=== PATIENT | male | born 1985 | race Two or more races ===

== ENCOUNTER 2020-03-09 17:21 | Outpatient (REF) | payer BC, SELFPAY | END 2020-03-09 17:22 | disposition home or self-care (01) | LOC: HO.LAB 17:21 | PROVIDERS: Visit Provider Internal Medicine | DX: Z20.822 Contact with and (suspected) exposure to COVID-19 (principal) | CPT/HCPCS: 36415; C9803; U0003 ==

== ENCOUNTER 2020-07-02 09:24 | Outpatient (REF) | payer BC, SELFPAY ==
[2020-07-02 09:44] LABS: COVID-19 Test Positive (Negative)
== END 2020-07-02 09:25 | disposition home or self-care (01) ==
LOC: HO.LAB 09:24
PROVIDERS: Visit Provider Internal Medicine
DX: Z20.822 Contact with and (suspected) exposure to COVID-19 (principal)
CPT/HCPCS: 36415; 87635; C9803

== ENCOUNTER 2020-07-13 15:15 | Outpatient (REF) | payer BC, SELFPAY ==
[2020-07-13 15:38] LABS: COVID-19 Test Negative (Negative)
== END 2020-07-13 15:16 | disposition home or self-care (01) ==
LOC: HO.LAB 15:15
PROVIDERS: Visit Provider Internal Medicine
DX: Z20.822 Contact with and (suspected) exposure to COVID-19 (principal)
CPT/HCPCS: 36415; 87635; C9803

== ENCOUNTER → 2022-09-13 14:04 | Outpatient (BNVA) | payer OTHER, SELFPAY | PROVIDERS: Visit Provider Physician Assistant | DX: S33.8XXA Sprain of other parts of lumbar spine and pelvis, initial encounter (principal); W18.30XA Fall on same level, unspecified, initial encounter | CPT/HCPCS: 99204 ==

== ENCOUNTER → 2022-09-19 12:55 | Outpatient (BNVA) | payer OTHER, SELFPAY | PROVIDERS: Visit Provider Physician Assistant Medical | DX: S33.8XXD Sprain of other parts of lumbar spine and pelvis, subsequent encounter (principal); W18.30XD Fall on same level, unspecified, subsequent encounter | CPT/HCPCS: 99213 ==